=== PATIENT | female | born 1940 | race Caucasian/White ===

== ENCOUNTER → 2018-11-14 | Outpatient (REF) | payer MEDICARE, BC ==
[~2018-11-14] MED LIST: BACTRIM DS1 TAB PO; CUBICIN500 MG IV; LORTAB 7.5 PO; METOPROL TAR50 MG PO; WARFARIN5 MG PO; XARELTO20 MG OR
[2018-11-14 10:33] LABS: INTERNATIONAL NORMALIZED RATIO 2.1 RATIO (0.7-1.3); PROTHROMBIN TIME 22.1 SECONDS (9.0-12.5)
== END | disposition home or self-care (01) ==
LOC: LAB 09:24
DX: I48.91 Unspecified atrial fibrillation (principal); Z79.899 Other long term (current) drug therapy; Z79.01 Long term (current) use of anticoagulants

== ENCOUNTER → 2018-12-12 | Outpatient (REF) | payer MEDICARE, BC ==
[2018-12-12 11:35] LABS: INTERNATIONAL NORMALIZED RATIO 2.6 RATIO (0.7-1.3); PROTHROMBIN TIME 27.4 SECONDS (9.0-12.5)
== END | disposition home or self-care (01) ==
LOC: LAB 09:39
DX: I48.91 Unspecified atrial fibrillation (principal); Z79.899 Other long term (current) drug therapy; Z79.01 Long term (current) use of anticoagulants

== ENCOUNTER 2019-10-19 | Emergency (ER) | payer MEDICARE, BC ==
[2019-10-19] MEDS ORDERED: ELIQUIS5 MG PO (13:22)
== END 2019-10-19 14:20 | disposition home or self-care (01) ==
DX: S81.812A Laceration without foreign body, left lower leg, initial encounter (principal); I48.91 Unspecified atrial fibrillation; W45.8XXA Other foreign body or object entering through skin, initial encounter; Y93.E8 Activity, other personal hygiene; Y92.009 Unspecified place in unspecified non-institutional (private) residence as the place of occurrence of the external cause; Z79.01 Long term (current) use of anticoagulants